=== PATIENT | female | born 1975 | race Two or more races ===

== ENCOUNTER 2018-03-14 12:15 | Observation (INO) | payer MEDICAID ==
[~2018-03-14 12:15] MED LIST: FERR325T50 PO; PREN-96 PO
[2018-03-14 14:38] LABS: Basophils # (auto) 0 uL; Basophils % (auto) 0.2 % (0.0-2.0); Eosinophils # (auto) 0.1 uL; Eosinophils % (auto) 0.9 % (0.0-7.0); Hematocrit 40.5 % (36.0-46.0); Hemoglobin 13.9 g/dL (12.2-16.2); Lymphocytes # (auto) 1.5 uL; Lymphocytes % (auto) 21.5 % (10.0-50.0); Mean Corpuscular Hgb Conc. 34.2 g/dL (32.0-36.0); Mean Corpuscular Volume 96.5 fL (80.0-100.0); Monocytes # (auto) 0.5 uL; Monocytes % (auto) 7.4 % (0.0-12.0); Platelet Count (auto) 139 10^3/uL (140-450); White Blood Cell 7.1 10^3/uL (4.4-10.8)
[2018-03-14 14:56] LABS: INR 0.85 (0.9-1.15); Partial Thromboplastin Time 26.6 sec (23.78-33.04); Prothrombin Time 9.2 sec (9.27-12.13)
[2018-03-14 14:57] LABS: Albumin 2.8 g/dL (3.4-5.0); Potassium 4.3 mmol/L (3.5-5.1); Uric Acid 4.4 mg/dL (2.6-6.0)
[2018-03-14 15:00] LABS: BUN/Creatinine Ratio 16.4; Bilirubin, Total 0.6 mg/dL (0.2-1.0)
== END 2018-03-14 16:00 | disposition home or self-care (01) | DRG 566 ==
LOC: LDRP 12:15
PROVIDERS: ADMIT Obstetrics & Gynecology; ATTEND Obstetrics & Gynecology
DX: O24.419 Gestational diabetes mellitus in pregnancy, unspecified control (principal); O09.523 Supervision of elderly multigravida, third trimester; Z3A.36 36 weeks gestation of pregnancy
CPT/HCPCS: 36415; 59025; 76818; 80053; 81002; 82948; 82962; 84550; 85025; 85610; 85730; G0378

== ENCOUNTER 2018-03-16 09:45 | Observation (INO) | payer MEDICAID ==
[~2018-03-16] VITALS: Ht 1 cm; Wt 0.5 kg
[2018-03-16 11:39] LABS: 24 Hr. Total Protein, Urine 278.8 mg/24 Hr (<149.1); Protein, Urine 8.2 mg/dL (0.0-11.9)
== END 2018-03-16 12:00 | disposition home or self-care (01) | DRG 566 ==
LOC: LDRP 09:45
PROVIDERS: ADMIT Obstetrics & Gynecology; ATTEND Obstetrics & Gynecology
DX: O24.419 Gestational diabetes mellitus in pregnancy, unspecified control (principal); O09.523 Supervision of elderly multigravida, third trimester; O13.9 Gestational [pregnancy-induced] hypertension without significant proteinuria, unspecified trimester; Z3A.36 36 weeks gestation of pregnancy
CPT/HCPCS: 84156; G0378

== ENCOUNTER 2018-03-21 11:07 | Observation (INO) | payer MEDICAID | END 2018-03-21 13:45 | disposition home or self-care (01) | DRG 566 | LOC: LDRP 11:07 | PROVIDERS: ADMIT Specialist; ATTEND Specialist | DX: O24.410 Gestational diabetes mellitus in pregnancy, diet controlled (principal); O13.3 Gestational [pregnancy-induced] hypertension without significant proteinuria, third trimester; O09.523 Supervision of elderly multigravida, third trimester; Z3A.38 38 weeks gestation of pregnancy | CPT/HCPCS: 59025; 76818; 81002; G0378 ==

== ENCOUNTER 2018-03-24 16:20 | Observation (INO) | payer MEDICAID | END 2018-03-24 17:35 | disposition home or self-care (01) | DRG 566 | LOC: LDRP 16:20 | PROVIDERS: ADMIT Obstetrics & Gynecology; ATTEND Obstetrics & Gynecology | DX: O24.410 Gestational diabetes mellitus in pregnancy, diet controlled (principal); O09.523 Supervision of elderly multigravida, third trimester; O13.9 Gestational [pregnancy-induced] hypertension without significant proteinuria, unspecified trimester; Z3A.37 37 weeks gestation of pregnancy | CPT/HCPCS: 76818; 82962; G0378; 59025; 81002; 82948 ==

== ENCOUNTER 2018-03-28 10:43 | Inpatient (IN) | payer MEDICAID | END 2018-03-31 08:37 | disposition home or self-care (01) | LOC: LDRP 10:43 | PROC: 10E0XZZ Delivery of Products of Conception, External Approach (ICD-10-PCS; principal; ~2018-03-28) | DX: O13.4 Gestational [pregnancy-induced] hypertension without significant proteinuria, complicating childbirth (principal); O24.429 Gestational diabetes mellitus in childbirth, unspecified control; Z3A.38 38 weeks gestation of pregnancy; Z37.0 Single live birth ==

== ENCOUNTER 2018-06-05 10:23 | Emergency (ER) | payer MEDICAID ==
[~2018-06-05] VITALS: Ht 162.6 cm; Wt 78.0 kg
[~2018-06-05 10:23] MED LIST changes: -FERR325T50 PO
[2018-06-05 12:23] VITALS: BP 128/74
[2018-06-05 13:30] LABS: Urine Bacteria FEW /hpf (None Seen); Urine Blood 1+ /uL (Negative); Urine Specific Gravity 1.008 (1.001-1.035); Urine WBC 227 /hpf (0 - 5)
== END 2018-06-05 17:44 | disposition home or self-care (01) ==
LOC: ER 10:33
DX: N39.0 Urinary tract infection, site not specified (principal)
CPT/HCPCS: 74176; 81001; 81025; 87086